=== PATIENT | female | born 1935 | race Caucasian/White ===

== ENCOUNTER → 2018-09-17 10:21 | Outpatient (CLI) | payer MEDICARE, SELFPAY ==
--- NOTE | 2018-09-17 | DI.RAD.S_ITS ---
PROCEDURE: XR CHEST 2V INDICATIONS: COUGH TECHNIQUE: 2 views of the chest were acquired. COMPARISON: [facility], , CERVICAL SPINE 2 OR 3 VIEWS, 01/20/2017, 8:40. FINDINGS: Surgical changes and devices: None. Lungs and pleura: No pleural effusions or pneumothorax. Lungs are clear. Mediastinum: Mediastinal contours are normal. Heart size is normal. Bones and chest wall: No suspicious bony abnormalities. Soft tissues appear unremarkable. IMPRESSION: No acute disease. Dictated by: Christiano Pizarro M.D. on 09/17/2018 at 11:40 Approved by: Christiano Pizarro M.D. on 09/17/2018 at 12:03
== END ==
PROVIDERS: PCP Physician Assistant; Visit Provider Student in an Organized Health Care Education/Training Program
DX: R05 Cough (principal)
CPT/HCPCS: 71046

== ENCOUNTER → 2018-11-19 09:41 | Outpatient (CLI) | payer MEDICARE, SELFPAY | PROVIDERS: PCP Physician Assistant; Visit Provider Physician Assistant | DX: M85.852 Other specified disorders of bone density and structure, left thigh (principal); Z78.0 Asymptomatic menopausal state; Z90.722 Acquired absence of ovaries, bilateral | CPT/HCPCS: 77080 ==

== ENCOUNTER → 2019-01-08 12:30 | Oncology outpatient (ONC) | payer MEDICARE, SELFPAY ==
[2019-01-08 13:33] VITALS: BP 152/81; PULSE 69; RESP 18; TEMP 36.8; O2SAT 98
--- NOTE | 2019-01-08 13:42 | ONC.CONS ---
History of Present Illness - Data of Consult Consult date: 01/08/19 Primary Care Provider: Jaylin Mcarthur PA-C - Consult Narrative Narrative: Diagnosis: Leukocytosis History of present illness: Heidi Calhoun is a 83 year old female who is referred for further evaluation of elevated white count. The patient reports that she was having her annual physical done. She felt fine and had no specific complaints. As part of her evaluation she had a CBC done on November 15. It showed an elevated white count at 11.5 with the upper limit of normal being 10.8. Hemoglobin and hematocrit were normal at 13.7 and 41.1 respectively. Platelet count was [id number]. Differential showed an absolute neutrophil count 7.3 and an absolute lymphocyte count of 3.2. There were no immature forms seen. Review of old CBC shows that in December 2017 her white count had been 9.5. In June 2017 11.1 in in December 2016 8.7. Today, she feels quite well. She has no specific complaints. She denies any recent infections. No fevers chills or sweats. She has not noted any adenopathy. Her appetite has been good and she has not lost any weight. No shortness of breath cough for chest pain. she is not having any GI complaints. Bowels have been moving normally. She has not had any urinary complaints. She does have some arthritis and had a steroid injection a couple years ago. She has not needed any oral prednisone. Her past medical history is notable for hypertension and heart murmur. She has had arthritis. She has had a prior hysterectomy. Her medications include estradiol hydrochlorothiazide potassium she takes ibuprofen and naproxen and calcium. She reports an allergy to sulfa. Family history is negative for any blood dyscrasias. There is no family history of malignancy. Social history: She previously worked in a [email or web address]. She does not smoke and has very rare alcohol use. CC: Mathew Bledsoe MD Home Medications and Allergies Home Medications Medication Instructions Recorded Confirmed Type calcium carbonate-vitamin D3 01/08/19 History [Calcium 600 + D(3)] estradiol 0.5 mg PO DAILY 01/08/19 01/08/19 History hydrochlorothiazide 50 mg PO DAILY 01/08/19 01/08/19 History hydrocodone-acetaminophen 1 tab PO Q6H PRN 01/08/19 01/08/19 History ibuprofen 400 mg PO QID PRN 01/08/19 01/08/19 History naproxen sodium [Aleve] PRN 01/08/19 History potassium chloride 20 meq PO DAILY 01/08/19 01/08/19 History Medical History - Social History Smoking Status: Never smoker Alcohol Intake Frequency: holidays/special occasions only Household Members: spouse Current Occupational Status: retired Review of Systems Constitutional: normal activity level, no weight loss Cardiovascular: no chest pain, no palpitations Respiratory: no cough Gastrointestinal: no change in appetite, no abdominal pain Hematologic/Lymphatic: no anemia, no enlarged lymph nodes Exam Vital signs: Vital Signs Temp Pulse Resp BP Pulse Ox 01/08/19 13:33 98.2 F 69 18 152/81 H 98 Intake and Output 01/07/19 01/08/19 01/08/19 23:59 07:59 15:59 Other: Weight 76.8 kg Patient Weight 01/08/19 23:59 Weight 76.8 kg - Constitutional positive no acute distress, positive average body habitus - Routine HEENT Exam Head: Present: normocephalic, atraumatic Eye: Present: EOMI, PERRL. Absent: conjunctival icterus, scleral injection ENT: Present: mucous membranes moist, oropharynx clear - Routine Neck Exam Present: supple. Absent: lymphadenopathy, thyromegaly - Routine Chest/Breast/Axilla Exam Axillae: Absent: lymphadenopathy - Routine Respiratory Exam Present: Clear to auscultation bilaterally. Absent: rales, wheezes - Routine Cardiovascular Exam Present: RRR, S1, S2. Absent: murmur - Routine Abdominal Exam Present: soft, normoactive bowel sounds. Absent: tenderness, organomegaly, mass - Routine Extremities Exam Absent: cyanosis, clubbing, edema - Routine Back/Spine Exam Back/Spine: Absent: paraspinal tenderness, vertebral tenderness - Routine Skin Exam Present: intact. Absent: petechiae, rash - Routine Neurological Exam Present: alert, oriented X3 - Routine Psychiatric Exam Present: normal affect, normal thought process Assessment and Plan (1) Leukocytosis Current visit: Yes Status: Acute 83-year-old woman with mild elevation in her white count without any obvious etiology. Her other counts are normal. Differential does not suggest any underlying myeloproliferative disorder or lymphoproliferative disorder. I think it is reasonable to repeat a CBC as well as a sed rate and a CRP to look for signs of inflammation that may be potentially resume the white count. She does not have enough of a lymphocytosis to raise the suspicion of CLL. Likewise there are not any immature forms noted making CML less likely. We will plan on repeating a CBC today. If her white count is improved, I do not think any further evaluation would be needed. If her white count has increased, it may be worthwhile checking a bcr/ABL PCR. Will call her when the results of her testing arrange for further follow-up after that if needed.
[2019-01-08 14:28] LABS: Add Manual Diff / Slide Review NO; Basophils Absolute Auto 100 /uL (0-100); Basophils Percent Auto 0.9 % (0-2); Eosinophils Absolute Auto 200 /uL (0-450); Eosinophils Percent Auto 1.9 % (2-4); Hematocrit 42.8 % (36-46); Hemoglobin 14.4 g/dL (12.0-16.0); Lymphocytes Absolute Auto 2300 /uL (1100-4500); Lymphocytes Percent Auto 21.9 % (25-40); Mean Corpuscular HGB Conc 33.6 % (30-36); Mean Corpuscular Hemoglobin 30.2 PG (26-34); Mean Corpuscular Volume 90.1 fL (80-100); Monocytes Absolute Auto 600 /uL (0-900); Monocytes Percent Auto 6.1 % (3-14); Neutrophils Absolute Auto 7100 /uL (1500-7000); Neutrophils Percent Auto 69.2 % (50-75); Platelet Count 362 X10^3/uL (150-400); Red Blood Cell Count 4.75 X10^6/uL (4.0-5.2); Red Cell Distribution Width 13.8 % (11.6-14.8); White Blood Cell Count 10.3 X10^3/uL (4.5-11.0)
[2019-01-08 14:50] LABS: Erythrocyte Sedimentation Rate 9 MM/HR (0-20)
[2019-01-08 14:51] LABS: C-Reactive Protein Quant 1.4 mg/dL (<1.0)
== END ==
PROVIDERS: PCP Physician Assistant
DX: D72.829 Elevated white blood cell count, unspecified (principal); I10 Essential (primary) hypertension; R01.1 Cardiac murmur, unspecified; M19.90 Unspecified osteoarthritis, unspecified site
CPT/HCPCS: 36415; 85025; 85651; 86140; 99204; 99214

== ENCOUNTER → 2021-10-18 10:39 | Outpatient (CLI) | payer OTHER, SELFPAY | PROVIDERS: PCP Student in an Organized Health Care Education/Training Program; Referring Provider Student in an Organized Health Care Education/Training Program; Visit Provider Student in an Organized Health Care Education/Training Program | DX: M85.852 Other specified disorders of bone density and structure, left thigh (principal); Z13.820 Encounter for screening for osteoporosis; Z78.0 Asymptomatic menopausal state; Z90.722 Acquired absence of ovaries, bilateral | CPT/HCPCS: 77080 ==

== ENCOUNTER 2022-03-19 09:34 | Emergency (ER) | payer OTHER, SELFPAY ==
[2022-03-19] VITALS (7 sets, daily range): BP systolic 175–209; BP diastolic 74–90; PULSE 57–82; RESP 17–31; TEMP 36.6; O2SAT 98–100; BMI 26.5
[2022-03-19 10:36] LABS: Add Manual Diff / Slide Review NO; Basophils Absolute Auto 100 /uL (0-100); Basophils Percent Auto 1.4 % (0-2); Eosinophils Absolute Auto 200 /uL (0-450); Eosinophils Percent Auto 1.9 % (2-4); Hematocrit 42.3 % (36-46); Hemoglobin 14.5 g/dL (12.0-16.0); Lymphocytes Absolute Auto 1600 /uL (1100-4500); Lymphocytes Percent Auto 17.4 % (25-40); Mean Corpuscular HGB Conc 34.3 % (30-36); Mean Corpuscular Hemoglobin 30.4 PG (26-34); Mean Corpuscular Volume 88.8 fL (80-100); Monocytes Absolute Auto 700 /uL (0-900); Monocytes Percent Auto 7.5 % (3-14); Neutrophils Absolute Auto 6700 /uL (1500-7000); Neutrophils Percent Auto 71.8 % (50-75); Platelet Count 320 X10^3/uL (150-400); Red Blood Cell Count 4.76 X10^6/uL (4.0-5.2); Red Cell Distribution Width 13.8 % (11.6-14.8); White Blood Cell Count 9.3 X10^3/uL (4.5-11.0)
[2022-03-19 10:47] LABS: Alanine Aminotransferase 17 IU/L (<35); Albumin 4.1 g/dL (3.5-5.0); Albumin Globulin Ratio 1.2 (1.0-2.8); Alkaline Phosphatase 100 U/L (38-126); Aspartate Aminotransferase 23 IU/L (14-36); BUN Creatinine Ratio 21.6 (6-22); Bilirubin Total 0.4 mg/dL (0.2-1.3); Blood Urea Nitrogen 21 mg/dL (7-17); Calcium 8.8 mg/dL (8.4-10.2); Carbon Dioxide 29 mmol/L (22-32); Chloride 103 mmol/L (98-107); Creatine Kinase 30 U/L (30-135); Estimated Glomerular Filt Rate 58 mL/min (>60); Globulin 3.5 g/dL (1.7-4.1); Glucose 91 mg/dL (80-110); HEMOLYSIS < 15 (0-50); Lipase 88 U/L (23-300); Potassium 3.5 mmol/L (3.4-5.1); Sodium 139 mmol/L (137-145); Total Protein 7.6 g/dL (6.3-8.2)
--- NOTE | 2022-03-19 10:48 | PC.NURSE ---
Pt has asymptomatic hypertension
[2022-03-19 10:58] LABS: Troponin I < 0.012 ng/mL (0.01-0.034)
--- NOTE | 2022-03-19 11:19 | ED_ITS ---
HPI - General Adult General Chief complaint: Hypertension Stated complaint: High Blood Pressure Yesterday Time Seen by Provider: 03/19/22 09:56 Source: patient Mode of arrival: Ambulatory History of Present Illness HPI narrative: Patient is a 86-year-old female history of hypertension presenting today with hypertension. She recently saw her primary care provider you started adjusting her blood pressure medications. She is currently on hydrochlorothiazide 50 mg once a day and she was just started lisinopril 20 mg once a day. She said yesterday she had a headache all day blood pressure was between 180 and 190. Today her 1st blood pressure was 160/99 she was completely asymptomatic. She took her medication and decided to recheck her blood pressure just to see what it was. She got multiple high readings as she did yesterday. She denies any chest pain shortness of breath headache nausea vomiting numbness tingling or weakness. Related Data Home Medications Medication Instructions Recorded Confirmed calcium carbonate 600 mg-vitamin 01/08/19 D3 5 mcg (200 unit) capsule (Calcium 600 + D(3)) estradiol 1 mg tablet 0.5 mg PO DAILY 01/08/19 01/08/19 hydrochlorothiazide 50 mg tablet 50 mg PO DAILY 01/08/19 01/08/19 hydrocodone 5 mg-acetaminophen 325 1 tab PO Q6H PRN Pain (Scale Score 01/08/19 01/08/19 mg tablet 1-3) ibuprofen 400 mg tablet 400 mg PO QID PRN Pain (Scale 01/08/19 01/08/19 Score 1-3) naproxen sodium 220 mg capsule PRN Pain (Scale Score 1-3) 01/08/19 (Aleve) potassium chloride 20 mEq 20 meq PO DAILY 01/08/19 01/08/19 tablet,extended release Allergies Allergy/AdvReac Type Severity Reaction Status Date / Time No Known Drug Allergies Allergy Verified 03/19/22 11:02 Review of Systems Review of Systems Narrative: GENERAL: Denies chills, fatigue, malaise, fever, sweats, travel HEENT: Denies sinus pain, ear pain, sore throat, difficulty swallowing, neck pain RESPIRATORY: Denies dyspnea, cough, wheezing, hemoptysis, sputum. CARDIOVASCULAR: Denies chest pain, palpitations, orthopnea, edema GASTROINTESTINAL: Denies nausea, vomiting, abdominal pain, diarrhea, constipatio n, melena. : Denies dysuria, frequency, incontinence, hematuria, urinary retention, flank pain. MUSCULOSKELETAL: Denies weakness, joint pain, or bony pain SKIN: No rash, no erythema, no pruritus NEUROLOGIC: Denies weakness, dizziness, headache, numbness, change in speech, confusion PSYCHIATRIC: No concerning psychosocial issues. 12 point review of systems is negative except for those stated above and HPI Patient History Social History household members: spouse Smoking Status: Never smoker Smoking Status: Never smoker alcohol intake frequency: a few times a month Alcohol type: beer Substance Use Type: does not use Exam Initial Vital Signs Initial Vital Signs: Vital Signs Temperature 97.8 F 03/19/22 09:49 Pulse Rate 82 03/19/22 09:49 Respiratory Rate 18 03/19/22 09:49 Blood Pressure 180/90 H 03/19/22 09:49 Pulse Oximetry 98 03/19/22 09:49 Oxygen Delivery Method 03/19/22 09:49 GENERAL: Alert pleasant 86-year-old female no acute distress HEENT: Head atraumatic,EOMI, pupils reactive, face symmetric, [moist] mucous membranes CARDIOVASCULAR: Regular rate and rhythm without murmurs, rubs or gallops. RESPIRATORY: Breath sounds equal bilaterally, no wheezes rales or rhonchi. ABDOMEN: Soft, nontender. Normoactive bowel sounds all 4 quadrants. No guarding or rebound. EXTREMITIES: Normal range of motion, no clubbing or edema. Neurovascularly intact NEUROLOGICAL: Alert and oriented x4.Normal gait and speech SKIN: Warm, dry, no laceration, no petechiae, no rashes or lesions. Course Orders Ordered: ED Orders 03/19/22 09:56 EKG-12 Lead Stat 03/19/22 10:20 Complete Blood Count AUTO DIFF Stat Comprehensive Metabolic Panel Stat Lipase Stat Troponin & CK Cardiac Panel Stat Vital Signs Vital signs: Vital Signs - 8 hr 03/19/22 09:49 03/19/22 10:41 03/19/22 10:41 Temperature 97.8 F Pulse Rate 82 66 Respiratory Rate 18 Blood Pressure 180/90 H 201/85 H Pulse Oximetry 98 100 Oxygen Delivery Method Room Air 03/19/22 11:00 03/19/22 11:21 03/19/22 11:21 Temperature Pulse Rate 57 L 71 Respiratory Rate 17 25 H Blood Pressure 209/89 H Pulse Oximetry 100 100 Oxygen Delivery Method 03/19/22 11:30 03/19/22 11:32 03/19/22 12:02 Temperature Pulse Rate 72 61 Respiratory Rate 31 H Blood Pressure 175/74 H Pulse Oximetry 98 99 Oxygen Delivery Method Medical Decision Making Lab Data Result diagrams: 03/19/22 10:20 03/19/22 10:20 Labs: Lab Results 03/19/22 03/19/22 Range/Units 10:20 10:20 WBC 9.3 (4.5-11.0) X10^3/uL RBC 4.76 (4.0-5.2) X10^6/uL Hgb 14.5 (12.0-16.0) g/dL Hct 42.3 (36-46) % MCV 88.8 (80-100) fL MCH 30.4 (26-34) PG MCHC 34.3 (30-36) % RDW 13.8 (11.6-14.8) % Plt Count 320 (150-400) X10^3/uL Neut % (Auto) 71.8 (50-75) % Lymph % (Auto) 17.4 L (25-40) % Caldwell % (Auto) 7.5 (3-14) % Eos % (Auto) 1.9 L (2-4) % Baso % (Auto) 1.4 (0-2) % Neut # (Auto) 6700 (0167-3482) /uL Lymph # (Auto) 1600 (1015-9996) /uL Caldwell # (Auto) 700 (0-900) /uL Eos # (Auto) 200 (0-450) /uL Baso # (Auto) 100 (0-100) /uL Sodium 139 (137-145) mmol/L Potassium 3.5 (3.4-5.1) mmol/L Chloride 103 (98-107) mmol/L Carbon Dioxide 29 (22-32) mmol/L BUN 21 H (7-17) mg/dL Creatinine 0.97 (0.52-1.04) mg/dL Estimated GFR 58 L (>60) mL/min BUN/Creatinine Ratio 21.6 (6-22) Glucose 91 (80-110) mg/dL Calcium 8.8 (8.4-10.2) mg/dL Total Bilirubin 0.4 (0.2-1.3) mg/dL AST 23 (14-36) IU/L ALT 17 (<35) IU/L Alkaline Phosphatase 100 (38-126) U/L Total Creatine Kinase 30 (30-135) U/L CK-MB (CK-2) TNP CK-MB (CK-2) Rel Index TNP Troponin I < 0.012 (0.01-0.034) ng/mL Total Protein 7.6 (6.3-8.2) g/dL Albumin 4.1 (3.5-5.0) g/dL Globulin 3.5 (1.7-4.1) g/dL Albumin/Globulin Ratio 1.2 (1.0-2.8) Lipase 88 (23-300) U/L ECG Data Interpretation: Normal sinus rhythm rate 60 p.r. interval 158 QRS [address] changes T- wave inversions Q-wave noted in lead 3 only, non pathologic, no priors to comp are MDM Narrative Medical decision making narrative: Patient is completely asymptomatic. Her nasal blood pressure this morning at home was not actually too bad but was elevated 160/99 however since then it has remained above 190. She has no sign of end-organ damage. She is completely asymptomatic. She just got started on lisinopril 20 mg once a day 2 days ago. She is probably still getting use to her blood pressure medication. Blood pressure went up initially in the ED and then it came back down. At this time no change in medication. No need for medication in the emergency department Discharge Plan Departure Patient Disposition: Home Clinical Impression: Hypertension Instructions: DI for High Blood Pressure Activity Restrictions/Additional Instructions: *You have been diagnosed with hypertension *What to do: At this time I think ear body just needs to adjust to his new medication *Continue to take medications as directed *Follow up with your primary care provider in 2-3 days or call [phone] *Return to ER if you should have headache chest pain shortness of breath persistently elevated blood pressure greater than 190/100 or any new, worsening or concerning symptoms Prescriptions: No Action estradiol 1 mg Tablet 0.5 mg PO DAILY hydrochlorothiazide 50 mg Tablet 50 mg PO DAILY potassium chloride 20 mEq Tablet Extended Release 20 meq PO DAILY hydrocodone-acetaminophen 5-325 mg Tablet 1 tab PO Q6H PRN (Reason: Pain (Scale Score 1-3)) Calcium 600 + D(3) 600 mg calcium- 200 unit Capsule ibuprofen 400 mg Tablet 400 mg PO QID PRN (Reason: Pain (Scale Score 1-3)) naproxen sodium [Aleve] 220 mg Capsule PRN (Reason: Pain (Scale Score 1-3)) Referrals: Lisa Chadwick PA-C [Primary Care Provider] - Visit Report Forms: Patient Portal/API
== END 2022-03-19 12:12 | disposition home or self-care (01) ==
PROVIDERS: Emergency Provider Emergency Medicine; PCP Student in an Organized Health Care Education/Training Program
DX: I10 Essential (primary) hypertension (principal)
CPT/HCPCS: 80053; 82550; 83690; 84484; 85025; 93005; 93010; 99283; 99284

== ENCOUNTER → 2022-07-27 08:48 | Outpatient (CLI) | payer OTHER, SELFPAY ==
--- NOTE | 2022-07-27 08:51 | DI.RAD.S_ITS ---
PROCEDURE: XR CERVICAL SPINE 2V OR 3V INDICATIONS: chronic right shoulder pain, numbness of right arm TECHNIQUE: 3 view(s) of the cervical spine were acquired. COMPARISON: None. FINDINGS: Mild degenerative anterolisthesis of C2 on C3 measuring 3 mm, and of C4 on C5 measuring 4 mm. Vertebral body heights maintained. No fracture. No suspicious lytic or blastic osseous lesion. Degenerative changes throughout the cervical spine from C2-C3 through C7-T1, manifesting as disc height loss with posterior osteophytic ridging of the endplates along with facet and uncovertebral hypertrophy. Findings are most pronounced at C4-C5, C5-C6, and C6-C7. IMPRESSION: Moderate mid and lower cervical spine degenerative changes. Consider MRI. Dictated by: Lion Mclean M.D. on 07/27/2022 at 11:48 Approved by: Lion Mclean M.D. on 07/27/2022 at 11:49
--- NOTE | 2022-07-27 08:51 | DI.RAD.S_ITS ---
PROCEDURE: XR SHOULDER RT MIN 2V INDICATIONS: chronic right shoulder pain, numbness of right arm TECHNIQUE: 3 views of the shoulder were acquired. COMPARISON: None. FINDINGS: Bones: Mild acromioclavicular and glenohumeral degenerative changes. No fractures or dislocations. No suspicious bony lesions. Visualized ribs appear intact. Soft tissues: No suspicious soft tissue calcifications. IMPRESSION: Mild degenerative changes. No acute finding. Dictated by: Lion Mclean M.D. on 07/27/2022 at 11:49 Approved by: Lion Mclean M.D. on 07/27/2022 at 11:50
== END ==
PROVIDERS: PCP Student in an Organized Health Care Education/Training Program; Referring Provider Student in an Organized Health Care Education/Training Program; Visit Provider Student in an Organized Health Care Education/Training Program
DX: M47.812 Spondylosis without myelopathy or radiculopathy, cervical region (principal); M25.511 Pain in right shoulder; R20.0 Anesthesia of skin; R20.2 Paresthesia of skin; G89.29 Other chronic pain
CPT/HCPCS: 72040; 73030

== ENCOUNTER → 2023-01-17 10:43 | Outpatient (CLI) | payer OTHER, SELFPAY ==
--- NOTE | 2023-01-17 | DI.MRI.S_ITS ---
PROCEDURE: MR CERVICAL SPINE WO CON INDICATIONS: Radiculopathy, cervical region TECHNIQUE: Noncontrast sagittal T1 spin echo and T2 fast spin echo, sagittal STIR, foraminal oblique sagittal T2 fast spin echo, and axial gradient echo or T2 fast spin echo through the cervical spine. COMPARISON: None. FINDINGS: Image quality: Excellent. Alignment and Curvature: There is normal bony alignment. Bone Marrow: Marrow demonstrates normal overall signal. Spinal Cord: Visualized spinal cord has normal size and signal. No cerebellar tonsillar herniation. Paraspinous Soft Tissues: No paravertebral masses. Prevertebral soft tissues are normal in thickness. C2-C3: No significant disc bulge. Uncovertebral hypertrophy and facet hypertrophy on the right cause moderate right foraminal stenosis. C3-C4: Diffuse disc bulge and disc osteophytes complexes with uncovertebral hypertrophy cause severe right foraminal stenosis. The central canal is patent. C4-C5: Diffuse disc bulge and disc osteophytes with uncovertebral hypertrophy cause moderate right and mild left foraminal stenosis. Central protrusion indents the anterior thecal sac and causes moderate central canal stenosis. C5-C6: No significant disc bulge. Uncovertebral hypertrophy causes moderate bilateral foraminal stenosis. The central canal has mild stenosis. C6-C7: Diffuse disc bulge with a right paramedian protrusion indents the anterior thecal sac and along with uncovertebral hypertrophy causes moderate bilateral foraminal stenosis. C7-T1: No significant disc bulge. 1.5 mm anterolisthesis. Mild left and no right foraminal stenosis. No central canal stenosis. IMPRESSION: 1. Multilevel cervical spondylosis causing foraminal and central canal stenosis as detailed above. 2. Right paramedian disc protrusion at C6-7. 3. Central protrusion at C4-5 causing moderate central canal stenosis. 4. No abnormal cord signal. Dictated by: Gustavo Stephenson M.D. on 01/17/2023 at 12:59 Approved by: Gustavo Stephenson M.D. on 01/17/2023 at 13:15
== END ==
PROVIDERS: PCP Student in an Organized Health Care Education/Training Program; Referring Provider Physical Medicine & Rehabilitation Pain Medicine; Visit Provider Physical Medicine & Rehabilitation Pain Medicine
DX: M47.22 Other spondylosis with radiculopathy, cervical region (principal); M50.121 Cervical disc disorder at C4-C5 level with radiculopathy; M48.02 Spinal stenosis, cervical region
CPT/HCPCS: 72141

== ENCOUNTER 2023-09-02 06:02 | Emergency (ER) | payer OTHER, SELFPAY ==
[2023-09-02] VITALS (11 sets, daily range): BP systolic 161–215; BP diastolic 71–93; PULSE 70–101; RESP 20; TEMP 36.9; O2SAT 96–99; BMI 28.0
--- NOTE | 2023-09-02 06:11 | DI.CT.S_ITS ---
PROCEDURE: CT ABDOMEN PELVIS W CON INDICATIONS: LLQ PAIN TECHNIQUE: After the administration of IV contrast, axial sections were acquired from the lung bases to the pubic symphysis. Coronal and sagittal reformats were performed. For radiation dose reduction, the following was used: automated exposure control, adjustment of mA and/or kV according to patient size. COMPARISON: None. FINDINGS: Image quality: Excellent. Lung bases: Unremarkable. Heart: No significant findings. ABDOMEN: Liver: A few small cysts. Gallbladder: No radiopaque gallstones or wall thickening. Biliary ducts: No biliary dilation. Pancreas: No ductal dilation. Spleen: Size is within normal limits. Adrenal Glands: No adrenal nodules. Kidneys and Ureters: No hydronephrosis. No solid mass. No complex renal cystic lesion which requires follow up. Small left peripelvic cysts. Stomach and Bowel: Normal colonic caliber, without significant wall thickening. Diverticulosis. No diverticulitis. The appendix is not dilated. Peritoneum: No abnormal intraperitoneal fluid. No free air. Ventral Wall: No hernia. Abdominal Nodes: No retroperitoneal or mesenteric adenopathy by size criteria. Vessels: Aorta and inferior vena cava are normal in size. PELVIS: Pelvic Organs: Small cyst near the vaginal cuff measuring 1.9 x 1.7 cm, (2/70). Small cysts at the adnexae. Bladder: No stone. Pelvic Nodes: No enlarged lymph nodes. Miscellaneous: No inguinal hernias are seen. Bones: No suspicious osseous lesion. IMPRESSION: 1. No diverticulitis. Normal appendix. No free fluid. 2. Small cyst at the vaginal cuff measuring 1.9 cm. Small adnexae cysts. If clinically indicated this could be further evaluated with pelvic ultrasound. Dictated by: Adan Coats M.D. on 09/02/2023 at 7:32 Approved by: Adan Coats M.D. on 09/02/2023 at 7:40
--- NOTE | 2023-09-02 06:24 | ED_ITS ---
HPI - Abdominal Pain <Tammy Klein MD - Last Filed: 09/02/23 06:49> General Chief Complaint: Abdominal Pain Stated Complaint: abd pain Time Seen by Provider: 09/02/23 06:02 Source: patient Mode of arrival: Ambulatory History of Present Illness HPI narrative: 87-year-old female with history of hypertension, hyperlipidemia presents by private vehicle from home for approximately 5 days of left lower quadrant abdominal pain. Three days ago patient saw her primary care provider, who diagnosed her in the office with diverticulitis and discharge the patient with Augmentin t.i.d.. Patient states she is been taking this medication but does not feel any better. Patient states her pain is aggravating and constant. She was not able to sleep last night due to her pain and so presented today for evaluation. Denies previous history of diverticulitis. Denies fevers, chills. Does endorse nonbloody diarrhea. No recent laboratory work or imaging performed per patient. Related Data Home Medications Medication Instructions Recorded Confirmed calcium carbonate 600 mg-vitamin 01/08/19 D3 5 mcg (200 unit) capsule (Calcium 600 + D(3)) estradiol 1 mg tablet 0.5 mg PO DAILY 01/08/19 01/08/19 hydrochlorothiazide 50 mg tablet 50 mg PO DAILY 01/08/19 01/08/19 hydrocodone 5 mg-acetaminophen 325 1 tab PO Q6H PRN Pain (Scale Score 01/08/19 01/08/19 mg tablet 1-3) ibuprofen 400 mg tablet 400 mg PO QID PRN Pain (Scale 01/08/19 01/08/19 Score 1-3) naproxen sodium 220 mg capsule PRN Pain (Scale Score 1-3) 01/08/19 (Aleve) potassium chloride 20 mEq 20 meq PO DAILY 01/08/19 01/08/19 tablet,extended release Previous Rx's Medication Instructions Recorded acyclovir 800 mg tablet 800 mg PO 5XD #35 tabs 09/02/23 prednisone 20 mg tablet 40 mg (2 x 20 mg) PO DAILY #10 tabs 09/02/23 Allergies Allergy/AdvReac Type Severity Reaction Status Date / Time No Known Drug Allergies Allergy Verified 03/19/22 11:02 Review of Systems <Tammy Klein MD - Last Filed: 09/02/23 06:49> Review of Systems Narrative: Negative except as noted above Patient History <Tammy Klein MD - Last Filed: 09/02/23 06:49> Social History household members: spouse Smoking Status: Never smoker Smoking Status: Never smoker alcohol intake frequency: a few times a month Alcohol type: beer Substance Use Type: does not use Exam <Tammy Klein MD - Last Filed: 09/02/23 06:49> Initial Vital Signs Initial Vital Signs: Vital Signs Temperature 98.5 F 09/02/23 06:10 Pulse Rate 101 H 09/02/23 06:10 Respiratory Rate 20 09/02/23 06:10 Blood Pressure 215/93 H 09/02/23 06:10 Pulse Oximetry 97 09/02/23 06:10 Oxygen Delivery Method Room Air 09/02/23 06:10 Const: Awake, alert, no acute distress, nontoxic appearing Cardiac: regular rate, regular rhythm RESP: unlabored, clear bilaterally, no wheezing GI: soft, left lower quadrant tenderness to deep palpation without rebound or guarding MSK: full range of motion, pulses equal Skin: Warm, Dry, intact, no rashes Neuro: AO x3, CN II-XII grossly intact, moves all extremities Psych: affect normal, mood normal, not suicidal, not homicidal <Damaris Sharma DO - Last Filed: 09/02/23 11:50> Initial Vital Signs Initial Vital Signs: Vital Signs Temperature 98.5 F 09/02/23 06:10 Pulse Rate 101 H 09/02/23 06:10 Respiratory Rate 20 09/02/23 06:10 Blood Pressure 215/93 H 09/02/23 06:10 Pulse Oximetry 97 09/02/23 06:10 Oxygen Delivery Method Room Air 09/02/23 06:10 Course <Tammy Klein MD - Last Filed: 09/02/23 06:49> Orders Ordered: ED Orders 09/02/23 06:11 CT abdomen pelvis w con Stat 09/02/23 06:20 CBC Auto Diff [Complete Blood Count AUTO DIFF] Stat CMP [Comprehensive Metabolic Panel] Stat Lipase Stat 09/02/23 08:05 US pelvic complete Stat Discontinued Medications Sodium Chloride (Normal Saline 0.9%) 1,000 mls @ 1,000 mls/hr IV BOLUS ONE Stop: 09/02/23 07:10 Last Infusion: 09/02/23 07:38 Dose: Infused Documented By: Admin: 09/02/23 06:29 Dose: 1,000 mls/hr Documented By: ESTEFANI Ketorolac Tromethamine (Ketorolac 30 Mg/Ml Vial) 15 mg IV NOW ONE Stop: 09/02/23 08:06 Last Admin: 09/02/23 08:26 Dose: 15 mg Documented By: SAMUEL Morphine Sulfate (Morphine 4 Mg/Ml Inj) 4 mg IV NOW ONE Stop: 09/02/23 06:12 Last Admin: 09/02/23 06:30 Dose: 4 mg Documented By: ESTEFANI Vital Signs Vital signs: Vital Signs - 8 hr 09/02/23 06:10 09/02/23 06:11 09/02/23 06:30 Temperature 98.5 F Pulse Rate 101 H 90 Respiratory Rate 20 Blood Pressure 215/93 H 161/71 H Pulse Oximetry 97 97 Oxygen Delivery Method Room Air Room Air 09/02/23 06:30 09/02/23 07:00 09/02/23 07:00 Temperature Pulse Rate 78 80 Respiratory Rate Blood Pressure 169/79 H Pulse Oximetry 96 99 Oxygen Delivery Method Room Air Room Air 09/02/23 07:33 09/02/23 07:33 09/02/23 08:00 Temperature Pulse Rate 79 Respiratory Rate Blood Pressure 176/81 H 176/85 H Pulse Oximetry 99 Oxygen Delivery Method Room Air 09/02/23 08:00 09/02/23 08:30 09/02/23 08:30 Temperature Pulse Rate 76 76 Respiratory Rate Blood Pressure 177/75 H Pulse Oximetry 98 97 Oxygen Delivery Method Room Air 09/02/23 09:00 09/02/23 09:00 09/02/23 09:30 Temperature Pulse Rate 82 70 Respiratory Rate Blood Pressure 188/83 H Pulse Oximetry 97 97 Oxygen Delivery Method Room Air 09/02/23 09:30 09/02/23 09:54 09/02/23 10:00 Temperature Pulse Rate 74 Respiratory Rate Blood Pressure 165/74 H 175/76 H Pulse Oximetry 98 Oxygen Delivery Method Room Air <Damaris Sharma, DO - Last Filed: 09/02/23 11:50> Orders Ordered: ED Orders 09/02/23 06:11 CT abdomen pelvis w con Stat 09/02/23 06:20 CBC Auto Diff [Complete Blood Count AUTO DIFF] Stat CMP [Comprehensive Metabolic Panel] Stat Lipase Stat 09/02/23 08:05 US pelvic complete Stat Discontinued Medications Sodium Chloride (Normal Saline 0.9%) 1,000 mls @ 1,000 mls/hr IV BOLUS ONE Stop: 09/02/23 07:10 Last Infusion: 09/02/23 07:38 Dose: Infused Documented By: Admin: 09/02/23 06:29 Dose: 1,000 mls/hr Documented By: ESTEFANI Ketorolac Tromethamine (Ketorolac 30 Mg/Ml Vial) 15 mg IV NOW ONE Stop: 09/02/23 08:06 Last Admin: 09/02/23 08:26 Dose: 15 mg Documented By: SAMUEL Morphine Sulfate (Morphine 4 Mg/Ml Inj) 4 mg IV NOW ONE Stop: 09/02/23 06:12 Last Admin: 09/02/23 06:30 Dose: 4 mg Documented By: ESTEFANI Vital Signs Vital signs: Vital Signs - 8 hr 09/02/23 06:10 09/02/23 06:11 09/02/23 06:30 Temperature 98.5 F Pulse Rate 101 H 90 Respiratory Rate 20 Blood Pressure 215/93 H 161/71 H Pulse Oximetry 97 97 Oxygen Delivery Method Room Air Room Air 09/02/23 06:30 09/02/23 07:00 09/02/23 07:00 Temperature Pulse Rate 78 80 Respiratory Rate Blood Pressure 169/79 H Pulse Oximetry 96 99 Oxygen Delivery Method Room Air Room Air 09/02/23 07:33 09/02/23 07:33 09/02/23 08:00 Temperature Pulse Rate 79 Respiratory Rate Blood Pressure 176/81 H 176/85 H Pulse Oximetry 99 Oxygen Delivery Method Room Air 09/02/23 08:00 09/02/23 08:30 09/02/23 08:30 Temperature Pulse Rate 76 76 Respiratory Rate Blood Pressure 177/75 H Pulse Oximetry 98 97 Oxygen Delivery Method Room Air 09/02/23 09:00 09/02/23 09:00 09/02/23 09:30 Temperature Pulse Rate 82 70 Respiratory Rate Blood Pressure 188/83 H Pulse Oximetry 97 97 Oxygen Delivery Method Room Air 09/02/23 09:30 09/02/23 09:54 09/02/23 10:00 Temperature Pulse Rate 74 Respiratory Rate Blood Pressure 165/74 H 175/76 H Pulse Oximetry 98 Oxygen Delivery Method Room Air MDM - Abdominal Pain <Tammy Klein MD - Last Filed: 09/02/23 06:49> Differential Diagnosis Differential diagnosis: Likely abdominal pain, acute appendicitis and diverticulitis Lab Data 09/02/23 06:20 09/02/23 06:20 Labs: Lab Results 09/02/23 Range/Units 06:20 WBC 10.9 (4.5-11.0) X10^3/uL RBC 4.77 (4.0-5.2) X10^6/uL Hgb 14.3 (12.0-16.0) g/dL Hct 42.8 (36-46) % MCV 89.9 (80-100) fL MCH 30.1 (26-34) PG MCHC 33.5 (30-36) % RDW 14.1 (11.6-14.8) % Plt Count 303 (150-400) X10^3/uL Neut % (Auto) 76.6 H (50-75) % Lymph % (Auto) 13.2 L (25-40) % [place] % (Auto) 7.5 (3-14) % Eos % (Auto) 1.7 L (2-4) % Baso % (Auto) 1.0 (0-2) % Neut # (Auto) 8300 H (6027-4469) /uL Lymph # (Auto) 1400 (6102-9714) /uL [place] # (Auto) 800 (0-900) /uL Eos # (Auto) 200 (0-450) /uL Baso # (Auto) 100 (0-100) /uL Sodium 134 L (137-145) mmol/L Potassium 3.7 (3.4-5.1) mmol/L Chloride 100 (98-107) mmol/L Carbon Dioxide 24 (22-32) mmol/L BUN 24 H (7-17) mg/dL Creatinine 1.07 H (0.52-1.04) mg/dL Estimated GFR 51 L (>60) mL/min BUN/Creatinine Ratio 22.4 H (6-22) Glucose 142 H (80-110) mg/dL Calcium 8.9 (8.4-10.2) mg/dL Total Bilirubin 0.9 (0.2-1.3) mg/dL AST 32 (14-36) IU/L ALT 23 (<35) IU/L Alkaline Phosphatase 83 (38-126) U/L Total Protein 7.7 (6.3-8.2) g/dL Albumin 4.1 (3.5-5.0) g/dL Globulin 3.6 (1.7-4.1) g/dL Albumin/Globulin Ratio 1.1 (1.0-2.8) Lipase 98 (23-300) U/L Point of care testing: Urine Dip Bedside Urine Glucose Negative Bedside Urine Bilirubin - Negative Bedside Urine Ketone - Negative Urine Specific [place] 1.010 Bedside Urine Occult Blood - Negative Bedside Urine pH 6.0 Bedside Urine Protein - Negative Bedside Urine Urobilinogen - Negative Bedside Urine Nitrite - Negative Bedside Urine Leukocytes - Negative Esterase MDM Narrative Medical decision making narrative: This is an overall well-appearing patient with 5 days of persistent left lower quadrant abdominal pain. She was diagnosed with diverticulitis, however no labs or imaging were performed during that visit. Abdomen is soft but she does have tenderness to deep palpation in the left lower quadrant. Hypertensive on arrival. Plan to order laboratory work, pain medication, and CT imaging. Will consider administering antihypertensives if blood pressure does not improve with pain medication administration. Labs and imaging pending. Care of patient signed to Dr. Sharma at 0700 <Damaris Sharma DO - Last Filed: 09/02/23 11:50> Lab Data Labs: Lab Results 09/02/23 Range/Units 06:20 WBC 10.9 (4.5-11.0) X10^3/uL RBC 4.77 (4.0-5.2) X10^6/uL Hgb 14.3 (12.0-16.0) g/dL Hct 42.8 (36-46) % MCV 89.9 (80-100) fL MCH 30.1 (26-34) PG MCHC 33.5 (30-36) % RDW 14.1 (11.6-14.8) % Plt Count 303 (150-400) X10^3/uL Neut % (Auto) 76.6 H (50-75) % Lymph % (Auto) 13.2 L (25-40) % [place] % (Auto) 7.5 (3-14) % Eos % (Auto) 1.7 L (2-4) % Baso % (Auto) 1.0 (0-2) % Neut # (Auto) 8300 H (7479-9859) /uL Lymph # (Auto) 1400 (0023-1207) /uL [place] # (Auto) 800 (0-900) /uL Eos # (Auto) 200 (0-450) /uL Baso # (Auto) 100 (0-100) /uL Sodium 134 L (137-145) mmol/L Potassium 3.7 (3.4-5.1) mmol/L Chloride 100 (98-107) mmol/L Carbon Dioxide 24 (22-32) mmol/L BUN 24 H (7-17) mg/dL Creatinine 1.07 H (0.52-1.04) mg/dL Estimated GFR 51 L (>60) mL/min BUN/Creatinine Ratio 22.4 H (6-22) Glucose 142 H (80-110) mg/dL Calcium 8.9 (8.4-10.2) mg/dL Total Bilirubin 0.9 (0.2-1.3) mg/dL AST 32 (14-36) IU/L ALT 23 (<35) IU/L Alkaline Phosphatase 83 (38-126) U/L Total Protein 7.7 (6.3-8.2) g/dL Albumin 4.1 (3.5-5.0) g/dL Globulin 3.6 (1.7-4.1) g/dL Albumin/Globulin Ratio 1.1 (1.0-2.8) Lipase 98 (23-300) U/L Point of care testing: Urine Dip Bedside Urine Glucose Negative Bedside Urine Bilirubin - Negative Bedside Urine Ketone - Negative Urine Specific [place] 1.010 Bedside Urine Occult Blood - Negative Bedside Urine pH 6.0 Bedside Urine Protein - Negative Bedside Urine Urobilinogen - Negative Bedside Urine Nitrite - Negative Bedside Urine Leukocytes - Negative Esterase Imaging Data CT scan - abdomen/pelvis: Radiologist's Impression: PROCEDURE: CT ABDOMEN PELVIS W CON INDICATIONS: LLQ PAIN TECHNIQUE: After the administration of IV contrast, axial sections were acquired from the lung bases to the pubic symphysis. Coronal and sagittal reformats were performed. For radiation dose reduction, the following was used: automated exposure control, adjustment of mA and/or kV according to patient size. COMPARISON: None. FINDINGS: Image quality: Excellent. Lung bases: Unremarkable. Heart: No significant findings. ABDOMEN: Liver: A few small cysts. Gallbladder: No radiopaque gallstones or wall thickening. Biliary ducts: No biliary dilation. Pancreas: No ductal dilation. Spleen: Size is within normal limits. Adrenal Glands: No adrenal nodules. Kidneys and Ureters: No hydronephrosis. No solid mass. No complex renal cystic lesion which requires follow up. Small left peripelvic cysts. Stomach and Bowel: Normal colonic caliber, without significant wall thickening. Diverticulosis. No diverticulitis. The appendix is not dilated. Peritoneum: No abnormal intraperitoneal fluid. No free air. Ventral Wall: No hernia. Abdominal Nodes: No retroperitoneal or mesenteric adenopathy by size criteria. Vessels: Aorta and inferior vena cava are normal in size. PELVIS: Pelvic Organs: Small cyst near the vaginal cuff measuring 1.9 x 1.7 cm, (2/70). Small cysts at the adnexae. Bladder: No stone. Pelvic Nodes: No enlarged lymph nodes. Miscellaneous: No inguinal hernias are seen. Bones: No suspicious osseous lesion. IMPRESSION: 1. No diverticulitis. Normal appendix. No free fluid. 2. Small cyst at the vaginal cuff measuring 1.9 cm. Small adnexae cysts. If clinically indicated this could be further evaluated with pelvic ultrasound. Dictated by: Adan Coats M.D. on 09/02/2023 at 7:32 MDM Narrative Medical decision making narrative: This is an overall well-appearing patient with 5 days of persistent left lower quadrant abdominal pain. She was diagnosed with diverticulitis, however no labs or imaging were performed during that visit. Abdomen is soft but she does have tenderness to deep palpation in the left lower quadrant. Hypertensive on arrival. Plan to order laboratory work, pain medication, and CT imaging. Will consider administering antihypertensives if blood pressure does not improve with pain medication administration. Labs and imaging pending. Care of patient signed to Dr. Sharma at 0700 Dr. Sharma-patient signed out to me by Dr. Klein is seen evaluated patient myself. She is quite tender in her left lower quadrant. CT does show possible ovarian cyst however she reports that she would a total hysterectomy 45 years ago. She is been having pain for about a week and half nothing making it better or worse. Blood work has been reviewed there is no leukocytosis mild [place] creatinine 1.0 she received morphine for pain but it did not really help. Patient is found to have ovarian cysts ultrasound does not report the mass suspicious nonetheless I discussed with her that she does need strict and close follow-up and maybe further testing. She ultimately says that she has some spots on her left side. She is previously had shingles they are vesicular and erythematous in nature. She actually had pain starting a couple days ago and then the rash showed up yesterday. Discharge Plan Departure Patient Disposition: Home Clinical Impression: Shingles rash, Cyst, ovarian Instructions: DI for Shingles, DI for Ovarian Cyst Activity Restrictions/Additional Instructions: *You have been diagnosed with shingles and ovarian cyst *What to do: At this time you have a right-sided ovarian cyst which does not explain your left-sided pain. However it is abnormal someone of your age to have ovarian cyst. You must have this followed up with further testing from your primary care provider. Your shingles rash I expect gets worse before it gets better. It can be quite painful at times. Please continue to monitor. Is contagious to children and people who have not had the chicken pox disease or vaccine *Continue to take medications as directed Acyclovir 800 mg 5 times a day for 7 days Prednisone 40 mg once a day for 5 days Tylenol 650 mg every 4-6 hours if needed for [id number] pain Motrin 600 mg every 6 hours if needed for [id number] pain *Follow up with your primary care provider in 2-3 days or call [phone] *Return to ER if you should have increasing pain nausea vomiting weakness or any new, worsening or concerning symptoms Prescriptions: New prednisone 20 mg tablet 40 mg PO DAILY Qty: 10 0RF acyclovir 800 mg tablet 800 mg PO 5XD Qty: 35 0RF Rx Instructions: space evenly during waking hours No Action estradiol 1 mg Tablet 0.5 mg PO DAILY hydrochlorothiazide 50 mg Tablet 50 mg PO DAILY potassium chloride 20 mEq Tablet Extended Release 20 meq PO DAILY hydrocodone-acetaminophen 5-325 mg Tablet 1 tab PO Q6H PRN (Reason: Pain (Scale Score 1-3)) Calcium 600 + D(3) 600 mg calcium- 200 unit Capsule ibuprofen 400 mg Tablet 400 mg PO QID PRN (Reason: Pain (Scale Score 1-3)) naproxen sodium [Aleve] 220 mg Capsule PRN (Reason: Pain (Scale Score 1-3)) Referrals: Lisa Chadwick PA-C [Primary Care Provider] - Stand Alone Forms: Patient Portal/API
[2023-09-02] MEDS: SODIUM CHLORIDE 0.9% 1,000 ML 1000 ML IV (06:29)
[2023-09-02] MEDS: MORPHINE 4 MG/ML INJ IV (06:30)
[2023-09-02 06:42] LABS: Add Manual Diff / Slide Review NO; Basophils Absolute Auto 100 /uL (0-100); Eosinophils Absolute Auto 200 /uL (0-450); Eosinophils Percent Auto 1.7 % (2-4); Hematocrit 42.8 % (36-46); Hemoglobin 14.3 g/dL (12.0-16.0); Lymphocytes Absolute Auto 1400 /uL (1100-4500); Lymphocytes Percent Auto 13.2 % (25-40); Mean Corpuscular HGB Conc 33.5 % (30-36); Mean Corpuscular Hemoglobin 30.1 PG (26-34); Mean Corpuscular Volume 89.9 fL (80-100); Monocytes Absolute Auto 800 /uL (0-900); Monocytes Percent Auto 7.5 % (3-14); Neutrophils Absolute Auto 8300 /uL (1500-7000); Neutrophils Percent Auto 76.6 % (50-75); Platelet Count 303 X10^3/uL (150-400); Red Blood Cell Count 4.77 X10^6/uL (4.0-5.2); Red Cell Distribution Width 14.1 % (11.6-14.8); White Blood Cell Count 10.9 X10^3/uL (4.5-11.0)
[2023-09-02 06:56] LABS: Alanine Aminotransferase 23 IU/L (<35); Albumin 4.1 g/dL (3.5-5.0); Albumin Globulin Ratio 1.1 (1.0-2.8); Alkaline Phosphatase 83 U/L (38-126); Aspartate Aminotransferase 32 IU/L (14-36); BUN Creatinine Ratio 22.4 (6-22); Bilirubin Total 0.9 mg/dL (0.2-1.3); Blood Urea Nitrogen 24 mg/dL (7-17); Calcium 8.9 mg/dL (8.4-10.2); Carbon Dioxide 24 mmol/L (22-32); Chloride 100 mmol/L (98-107); Estimated Glomerular Filt Rate 51 mL/min (>60); Globulin 3.6 g/dL (1.7-4.1); Glucose 142 mg/dL (80-110); Lipase 98 U/L (23-300); Potassium 3.7 mmol/L (3.4-5.1); Sodium 134 mmol/L (137-145); Total Protein 7.7 g/dL (6.3-8.2)
[2023-09-02 06:59] LABS: HEMOLYSIS 50 (0-50)
--- NOTE | 2023-09-02 08:05 | DI.US.S_ITS ---
PROCEDURE: US PELVIC COMPLETE INDICATIONS: llq pain, possible ovarian cyst hx hysterectomy TECHNIQUE: Real-time scanning was performed of the pelvic organs, with image documentation. Additional endovaginal scanning was necessary due to incomplete visualization of the adnexal and endometrial structures by transabdominal scanning. COMPARISON: [facility], CT, CT ABDOMEN PELVIS W CON, 09/02/2023, 7:22. FINDINGS: Uterus: Prior hysterectomy. At the vaginal cough, there is a simple appearing nonvascular cyst seen that measures 1.5 x 0.8 x 1.2 cm. Ovaries: The right ovary measures 1.6 x 1.3 x 1.2 cm, with a volume of 1.3 cc. There are 3 cystic foci seen within the right ovary, with the largest measuring up to 9 mm. Less than 12 follicles can be seen involving the right ovary. The left ovary has been removed. No adnexal masses are seen on either side. Other: No pathologic free abdominal or pelvic fluid. IMPRESSION: Simple appearing cyst measuring up to 1.5 cm seen at the vaginal cuff. There are 3 cystic lesion seen involving the right ovary, which are not viewed with suspicion, with the largest measuring up to 9 mm. Status post hysterectomy and left oophorectomy. We strive to produce accurate, complete, and clear reports of imaging services. To assist us in improving patient care, this report was composed using standard report templates and voice recognition software. Therefore, it may contain abnormal punctuation, insertions and/or omissions. Occasional wrong-word or sound-alike substitutions may occur. Though we review the report and make efforts to correct it, we do recommend that the report be read carefully in proper context to recognize any text inaccuracies. Dictated by: Errol Mc M.D. on 09/02/2023 at 8:24 Approved by: Errol Mc M.D. on 09/02/2023 at 8:27
[2023-09-02] MEDS: KETOROLAC 30 MG/ML VIAL 15 MG IV (08:26)
== END 2023-09-02 10:18 | disposition home or self-care (01) ==
PROVIDERS: Emergency Medicine; Emergency Provider Emergency Medicine; PCP Student in an Organized Health Care Education/Training Program
DX: B02.9 Zoster without complications (principal); N83.201 Unspecified ovarian cyst, right side
CPT/HCPCS: 36415; 74177; 76830; 76856; 80053; 81003; 83690; 85025; 96361; 96374; 96375; 99284; J1885; J2270

== ENCOUNTER → 2024-02-01 09:46 | Outpatient (CLI) | payer OTHER, SELFPAY ==
--- NOTE | 2024-02-01 09:47 | DI.RAD.S_ITS ---
PROCEDURE: XR DEXA AXIAL SKELETON INDICATIONS: OSTEOPOROSIS SCREENING COMPARISON: [facility], CR, XR DEXA AXIAL SKELETON, 10/18/2021, 11:05. FINDINGS: Lumbar Spine: Bone mineral density 1.070 g/cm2, T score 0.2, normal. Left Hip: Bone mineral density 0.837 g/cm2, T score -0.9, normal. Left Femoral Neck: Bone mineral density 0.655 g/cm2, T score -1.7, osteopenia. Right Hip: Bone mineral density 0.837 g/cm2, T score -0.9, normal. Right Femoral Neck: Bone mineral density 0.659 g/cm2, T score -1.7, osteopenia. Fracture Risk Calculation (when applicable): 10-year fracture risk of a major osteoporotic fracture 20% and of a hip fracture 5.2%. (T score greater or equal to -1.0 to: NORMAL) (T score from -1.1 to -2.4: OSTEOPENIA) (T score less than or equal to -2.5: OSTEOPOROSIS) IMPRESSION: 1. Based on WHO criteria, the patient has osteopenia and increased risk of fractures. 2. Because of difference in scanning technique and analysis methods, statistical analysis cannot be performed between the current study and the last exam. Follow-up guidelines as follows: Osteoporosis: Consider a repeat DEXA and Vertebral Fracture Assessment (VFA) exam in 2 years or sooner if medically necessary, to reassess this patient's status. Osteopenia: Consider a repeat DEXA in 2-3 years to reassess this patient's status, or if there is a new clinical indication. Normal: Consider a repeat DEXA in 5 years or sooner, or if there is a new clinical indication. Dictated by: Lamonte Diaz M.D. on 02/01/2024 at 10:40 Approved by: Lamonte Diaz M.D. on 02/01/2024 at 10:43
== END ==
LOC: RAD 09:47
PROVIDERS: PCP Student in an Organized Health Care Education/Training Program; Referring Provider Student in an Organized Health Care Education/Training Program; Visit Provider Student in an Organized Health Care Education/Training Program
DX: M85.89 Other specified disorders of bone density and structure, multiple sites (principal); N95.9 Unspecified menopausal and perimenopausal disorder
CPT/HCPCS: 77080

== ENCOUNTER → 2024-08-05 07:23 | Outpatient (CLI) | payer MEDICARE, SELFPAY ==
--- NOTE | 2024-08-05 07:25 | DI.US.S_ITS ---
PROCEDURE: US PELVIC COMPLETE INDICATIONS: cystic lesions on right ovary TECHNIQUE: Real-time scanning was performed of the pelvic organs, with image documentation. Additional endovaginal scanning was necessary due to incomplete visualization of the adnexal and endometrial structures by transabdominal scanning. COMPARISON: [facility], CT, CT ABDOMEN PELVIS W CON, 09/02/2023, 7:22. [facility], US, US PELVIC COMPLETE, 09/02/2023, 8:53. FINDINGS: Uterus: Absent. Apparent nabothian cysts are present adjacent to the vaginal cuff. Ovaries: Absent. Adnexal cysts are present bilaterally measuring 2.6 x 1.1 x 1.1 cm on the right and 1.6 x 1.2 x 1.2 cm on the left. Other: No pathologic free abdominal or pelvic fluid. IMPRESSION: Hysterectomy and bilateral oophorectomy. Adnexal cysts as above. They appear relatively unchanged compared to prior exam. We strive to produce accurate, complete, and clear reports of imaging services. To assist us in improving patient care, this report was composed using standard report templates and voice recognition software. Therefore, it may contain abnormal punctuation, insertions and/or omissions. Occasional wrong-word or sound-alike substitutions may occur. Though we review the report and make efforts to correct it, we do recommend that the report be read carefully in proper context to recognize any text inaccuracies. Dictated by: Florinda Guzman M.D. on 08/05/2024 at 16:28 Approved by: Florinda Guzman M.D. on 08/05/2024 at 16:36
== END ==
PROVIDERS: PCP Physician Assistant; Referring Provider Physician Assistant; Visit Provider Physician Assistant
DX: N94.89 Other specified conditions associated with female genital organs and menstrual cycle (principal); Z90.710 Acquired absence of both cervix and uterus; N88.8 Other specified noninflammatory disorders of cervix uteri; N83.292 Other ovarian cyst, left side; N83.291 Other ovarian cyst, right side; Z90.722 Acquired absence of ovaries, bilateral
CPT/HCPCS: 76830; 76856

== ENCOUNTER → 2024-08-06 12:03 | Outpatient (CLI) | payer MEDICARE, SELFPAY ==
--- NOTE | 2024-08-06 | DI.US.S_ITS ---
PROCEDURE: US RENAL COMPLETE INDICATIONS: STAGE 3A CKD TECHNIQUE: Real-time scanning was performed of the kidneys and bladder, with image documentation. COMPARISON: None. FINDINGS: Kidneys: Both kidneys measure 9 cm. Minimal right and mild left pelvocaliectasis. There also parapelvic cysts bilaterally. No definite solid renal mass. Suspected multiple nonobstructing calculi measuring up to 3 mm in the right kidney. Vascular calcifications are seen. Bladder: Both ureteral jets were visualized. Postvoid residual is 2 cc. Miscellaneous: No free pelvic fluid. IMPRESSION: Minimal right and mild left collecting system dilation. [id number] bilateral renal atrophy. Suspected bilateral parapelvic cysts and nonobstructing right renal calculi. Vascular calcifications are present. Postvoid residual is 2 cc in the bladder. Dictated by: Dylon Hinton M.D. on 08/06/2024 at 16:11 Approved by: Dylon Hinton M.D. on 08/06/2024 at 16:13
== END ==
PROVIDERS: PCP Physician Assistant; Referring Provider Family Medicine; Visit Provider Family Medicine
DX: N18.31 Chronic kidney disease, stage 3a (principal); N26.1 Atrophy of kidney (terminal)
CPT/HCPCS: 76770